=== PATIENT | female | born 1970 | race Caucasian/White ===

== ENCOUNTER 2016-08-06 05:37 | Day surgery (SDC) | payer MEDICARE, MEDICAID ==
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
--- NOTE | ~2016-08-06 | OR ---
PATIENT'S NAME: OLLIE LIMA [facility] AGE: 46 Y [address] ROOM: [place] [address] LOCATION: [facility] [place] ADMIT DATE: 08/06/2016 OR/Procedure Report DISCHARGE DATE: FAMILY PHYSICIAN: Shannon Hunter MD ATTENDING PHYSICIAN: Darlene De La O SURGEON: Darlene De La O MD KNOBBER: DATE OF PROCEDURE: 08/06/2016 PREOPERATIVE DIAGNOSIS: Neurogenic bladder with suprapubic catheter. POSTOPERATIVE DIAGNOSES: 1. Multiple small bladder stones. 2. Huge fecal impaction. PROCEDURE: 1. Cystoscopy and evacuation of bladder stones. 2. Removal of fecal impaction. DESCRIPTION OF PROCEDURE: The patient was placed in dorsal lithotomy position, prepped and draped. It was almost impossible to get a scope in because of a huge and hard fecal impaction and was able to get in the bladder. There were multiple small stones in the bladder. Otherwise, the bladder looked normal. With the TresaGuruji evacuator, all the stones and debris was irrigated from the bladder. Then, a #24 silicone Desouza catheter was inserted and irrigated easily without difficulty. The huge fecal impaction was then manually removed. She was then accompanied to recovery area. DARLENE DE LA O MD EKL/modl /[id number] CC: Shannon Hunter MD d: 08/06/16 0925 t: 08/07/16 0431, OPERATIVE SUMMARY
[~2016-08-06 05:37] MED LIST: ACID CONTROL150 MG PO; AMITIZA8 MCG PO; BACLOFEN10 MG PO; BACTRIM 400-801 EACH PO; CITRUCEL POWDE850 GM PO; CRANBERRY500 M1 PO; DANTRIUM25 M1 PO; DANTRIUM50 MG PO; DITROPAN5 MG PO; LASIX40 M1 PO; LIORESAL10 MG PO; MIRALAX17 GM PO; MS CONTIN30 MG PO; MULTIVITAMINS1 EAC1 PO; NEURONTIN300 MG PO; NEURONTIN600 MG PO; NORCO 10-325 T1 EACH PO; POTASSIUM99 M1 PO; PROLIA60 MG/ML IM; SENOKOT S (S1 TABLET PO; STOOL SOFTENER100 M1 PO; TYLENOL325 MG PO; VALIUM5 MG PO; VITAMIN D1000 UNI1 PO; VITAMIN D3 COM1 EACH PO
[2016-08-06] MEDS ORDERED: MIRALAX17 GM PO (08:44)
== END 2016-08-06 08:45 | disposition disaster alternative care site (69) ==
LOC: GSDC 05:37 → GPOC 17:00
PROC: 0TCB8ZZ Extirpation of Matter from Bladder, Via Natural or Artificial Opening Endoscopic (ICD-10-PCS; principal; 2016-08-06)
PROC: 3E1H78Z Irrigation of Lower GI using Irrigating Substance, Via Natural or Artificial Opening (ICD-10-PCS; 2016-08-06)
DX: N21.0 Calculus in bladder (principal); K56.41 Fecal impaction; N31.9 Neuromuscular dysfunction of bladder, unspecified; G82.20 Paraplegia, unspecified; K21.9 Gastro-esophageal reflux disease without esophagitis; K59.09 Other constipation; Z91.040 Latex allergy status; Z88.8 Allergy status to other drugs, medicaments and biological substances; Z98.890 Other specified postprocedural states
CPT/HCPCS: J3010; J7030